=== PATIENT | female | born 2000 | race Caucasian/White ===

== ENCOUNTER 2018-04-23 16:24 | Outpatient (REF) | payer MEDICAID, SELFPAY ==
[2018-04-27 14:37] LABS: Chlamydia Result Negative; GC Result Negative; Specimen Description URINE
== END 2018-04-23 16:44 ==
LOC: LBN 16:24
PROVIDERS: PCP Family Medicine; Visit Provider Nurse Practitioner Women's Health
DX: Z11.3 Encounter for screening for infections with a predominantly sexual mode of transmission (principal)
CPT/HCPCS: 87491; 87591

== ENCOUNTER 2018-11-06 15:39 | Emergency (ER) | payer MEDICAID, SELFPAY ==
[2018-11-06 15:54] VITALS: BP 113/63; PULSE 67; RESP 15; TEMP 36.9; O2SAT 99
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
== END 2018-11-06 17:56 | disposition home or self-care (01) ==
PROVIDERS: Emergency Provider Student in an Organized Health Care Education/Training Program; PCP Family Medicine
DX: S51.811A Laceration without foreign body of right forearm, initial encounter (principal); V17.0XXA Pedal cycle driver injured in collision with fixed or stationary object in nontraffic accident, initial encounter
CPT/HCPCS: 12001; 90471; 99283

== ENCOUNTER 2019-01-01 10:20 | Outpatient (CLI) | payer MEDICAID, SELFPAY ==
[2019-01-01 12:38] LABS: Abs Immature Grans 0.01 k/cumm (0.0-0.09); Absolute Basophil Count 0.03 k/cumm (0.0-0.2); Absolute Eosinophil Count 0.12 k/cumm (0.0-0.7); Absolute Lymphocyte Count 1.48 k/cumm (1.2-3.4); Absolute Monocyte Count 0.41 k/cumm (0.11-0.7); Absolute Neutrophil Count 3.51 k/cumm (1.2-6.7); Basophils % 0.5; Eosinophils % 2.2; HCT 39.4 % (36.0-46.0); HGB 12.8 g/dL (12.0-15.5); Immature Grans % 0.2; Lymphocytes % 26.6; Mean Corp. HGB Concentration 32.5 g/dL (32.0-36.0); Mean Corpuscular Hemoglobin 28.1 pg (27.0-33.0); Mean Corpuscular Volume 86.6 fL (80-95); Mean Platelet Volume 10.7 fL (8.0-11.0); Monocytes % 7.4; Neutrophils % 63.1; Platelet Count 307 x1000/uL (130-400); RBC 4.55 m/cumm (4.00-5.20); RBC Distribution Width 13.2 % (11.7-14.6); White Blood Cell Count 5.56 k/cumm (4.4-10.8)
[2019-01-01 13:04] LABS: ALT 22 U/L (14-59); AST 17 U/L (15-37); Albumin 2.7 g/dL (3.4-5.0); Alkaline Phosphatase 67 U/L (46-116); Anion Gap 9.9 mmol/L (3-11); BUN 9 mg/dL (7-18); Bilirubin, Total 0.2 mg/dL (0.2-1.0); CO2 28.1 mmol/L (21.0-32.0); CREATININE 0.75 mg/dL (0.55-1.02); Calcium 9.7 mg/dL (8.5-10.1); Chloride 103 mmol/L (98-107); Glucose 84 mg/dL (74-106); Potassium 4.6 mmol/L (3.5-5.1); Sodium 141 mmol/L (136-145); TSH (W/Ref FT4) 1.93 uIU/mL (0.36-3.74)
== END 2019-01-01 10:40 ==
PROVIDERS: PCP Family Medicine; Visit Provider Internal Medicine
DX: R45.1 Restlessness and agitation (principal); Z00.00 Encounter for general adult medical examination without abnormal findings
CPT/HCPCS: 36415; 80053; 84443; 85025

== ENCOUNTER 2020-02-28 07:54 | Emergency (ER) | payer MEDICAID, SELFPAY ==
[2020-02-28 07:59] VITALS: BP 132/74; PULSE 60; RESP 18; TEMP 36.5; O2SAT 100
--- NOTE | 2020-02-28 08:12 | W.ED.GENAD ---
Discharge Plan Disposition Patient Disposition: HOME Condition: Stable Discharge Details Clinical Impression: Impetigo Primary Care Provider: Marilee Barnett ED Provider: Yesy Malin Home Meds and New Rx's Prescriptions: New mupirocin 2 % ointment kit 1 applic topical TID 10 Days Qty: 1 RF: 1 cephalexin 500 mg tablet 500 mg PO BID 7 Days Qty: 14 RF: 0 No Action albuterol sulfate 90 mcg/actuation HFA aerosol inhaler 2 puff IH Q6H PRN (Reason: shortness of breath or wheezing) Qty: 8.5 RF: 4 Discharge Instructions Instructions: Impetigo (ED) Additional Instructions: Follow up with primary care provider in 3-5 days. Return to ED sooner if any worsening or concerns. Increase oral fluids. Please take Tylenol or Ibuprofen with food every 4-6 hours as needed for pain and swelling. Please use the topical antibiotic cream as directed 3 times a day for 7 to 10 days. If no improvement with the topical cream in 3 days please start the oral antibiotic and take as directed. Referrals: Marilee Barnett, JADA [Primary Care Provider] - Discharge Data Discharge Date/Time-TO BE ENTERED AT DEPARTURE: 02/28/20 08:37 Medical Decision Making 19-year-old female presents to the ED with chief complaint of periorbital cellulitis and honey crusted lesion surrounding her mouth which has been apparent for approximately 5 days. She denies any trouble swallowing no throat pain no other rashes or lesions on any part of her body. She reports using a sun tanning hopkins prior to onset of symptoms. Denies any fever, chills or any systemic type symptoms. She has been trying cold sore cream with little to no relief. Patient received mupirocin ointment here in department prior to discharge, given a prescription for this. Also given a prescription for oral antibiotics and instructed to start those after 3 days of topical if no improvement. Patient verbalized understanding discussed home care and strict return instructions. This text was generated using Equigerminalation system, please disregard any oddities of phrase or misspellings. HPI General Mode of arrival: ambulatory. Date/Time Provider Initiated Documentation: 02/28/20 08:04. Limitations to Documentation: no limitations. Information obtained by: patient. HPI Narrative: 19-year-old female presents to the ED with chief complaint of periorbital cellulitis and honey crusted lesion surrounding her mouth which has been apparent for approximately 5 days. She denies any trouble swallowing no throat pain no other rashes or lesions on any part of her body. She reports using a sun tanning hopkins prior to onset of symptoms. Denies any fever, chills or any systemic type symptoms. She has been trying cold sore cream with little to no relief. Related Data Home Medications Medication Instructions Recorded Confirmed albuterol sulfate 90 mcg/actuation 2 puff IH Q6H PRN #8.5 gm 01/01/19 02/28/20 aerosol inhaler cephalexin 500 mg PO BID 7 Days #14 tab 02/28/20 mupirocin 1 applic TOPICAL TID 10 Days #1 ea 02/28/20 Previous Rx's Medication Instructions Recorded albuterol sulfate 90 mcg/actuation 2 puff IH Q6H PRN #8.5 gm 01/01/19 aerosol inhaler cephalexin 500 mg PO BID 7 Days #14 tab 02/28/20 mupirocin 1 applic TOPICAL TID 10 Days #1 ea 02/28/20 Allergies Allergy/AdvReac Type Severity Reaction Status Date / Time enviornmental,animal dander Allergy Intermediate Wheezing Uncoded 02/28/20 08:04 General Stated Complaint: Cellulitis FREDI: 4 Review of Systems All systems reviewed & are unremarkable except as noted in HPI and below ENT Ears, Nose, Mouth, and Throat: Reports lip swelling and Reports mouth lesions Allergic/Immunologic Allergic/Immunologic: Reports lip swelling [facility] Medical History History of varicella 11/2009 Mild intermittent asthma Surgical History Tooth extraction age 7 years Family History Paternal Grandfather Stomach cancer Paternal Grandmother Neoplasm LUNG Lung cancer Mother Systemic lupus erythematosus Sickle cell trait Father Essential hypertension Heart disease Hyperlipidemia Alcohol abuse Now sober Maternal History Diabetes FAMILY HISTORY Alcohol abuse Social History Smoking/Tobacco Use Status: Former Tobacco Use Tobacco: How many years used: 3 Quit status: considering quitting Second Hand Exposure: No Smoking risk assessment performed?: Yes Alcohol Intake: current Alcohol Intake frequency: a few times a month Alcohol type: beer, wine and hard liquor Drug use: Occasionally Substance use type: marijuana Caregiver/Support person: No Household members: significant other Housing: apartment Communication Needs: None Do you need help understanding health information?: Never Pets and animals: Yes Pets and animals: dog(s) Sexually active: Yes Do you think of yourself as: straight/heterosexual Current gender identity: female What is your relationship status?: living with partner How often do you talk on the phone with friends or family?: three or more times per week How often do you get together with friends or relatives?: twice per week How often do you attend mormonism or alevism services?: decline to answer Do you belong to any clubs or organized social groups?: yes Panel score (0-1 are the most socially isolated patients): 3 What type of physical activity do you participate in: walking, bicycling, weight lifting and other Details: cardio, skiing, hiking Duration: 60-90 minutes/day Frequency: 5-6 times per week Rae/Mosque: Athiest Special rae needs: No Seatbelt use: always Helmet use: Yes Helmet use: always Drive intox or ride w/intox class c truck driver: No Do you feel safe at home: Yes Do you feel safe in your relationship?: Yes Exam Narrative Exam Narrative: Constitutional: Alert and oriented x3. Appears stated age. Normal body habitus. Head: Normocephalic, no trauma. Eyes: Pupils PERRLA, Red reflex noted, EOM's intact. Eyelids symmetrical without lesions, discharge, or swelling. ENT: Bilateral TM's WNL, External ear normal to inspection, no mastoid TTP, swelling, or erythema, Nasal turbinates WNL, no nasal discharge. Normal dentition, Posterior pharynx WNL, no exudate. Has significant honey custard vesicular lesions periorbital area. Chest: RRR, Normal S1, S2, distal pulses intact. Resp: Lungs clear to auscultation bilaterally, no wheezes, rales, or rhonchi. Neurologic: Cranial nerves II-XII intact. Alert and oriented x 3. DTR's intact. Hematologic/Lymphatic: No ecchymosis, no lymphadenopathy. Course Vital Signs Vital signs: Vital Signs Temperature 36.5 C 02/28/20 07:59 Pulse 60 02/28/20 07:59 Respiratory Rate 18 02/28/20 07:59 Blood Pressure 132/74 02/28/20 07:59 Pulse Oximetry 100 02/28/20 07:59 Temperature 36.5 C 02/28/20 07:59 Temperature Source Temporal Artery Scan 02/28/20 07:59 Pulse 60 02/28/20 07:59 Respiratory Rate 18 02/28/20 07:59 Respiratory Effort Non-Labored 02/28/20 08:03 Blood Pressure 132/74 02/28/20 07:59 Blood Pressure Position Sitting 02/28/20 07:59 Pulse Oximetry 100 02/28/20 07:59 Oxygen Delivery Method Room Air 02/28/20 07:59 Oxygen Flow Rate 0 02/28/20 07:59 Pain Level 6 02/28/20 07:59
== END 2020-02-28 08:37 | disposition home or self-care (01) ==
PROVIDERS: Emergency Provider Registered Nurse Emergency; PCP Nurse Practitioner Family
DX: L03.213 Periorbital cellulitis (principal); L01.00 Impetigo, unspecified
CPT/HCPCS: 99283

== ENCOUNTER 2020-12-16 10:08 | Outpatient (CLI) | payer MEDICAID, SELFPAY ==
--- NOTE | 2020-12-16 | DI.RAD_ITS ---
Exam(s) XR CHEST 2V PA LATERAL EXAM: XR CHEST 2V PA LATERAL CLINICAL HISTORY: Lingering cough, concerns for pneumonia. TECHNIQUE: 2D digital imaging was performed. COMPARISON: No exams were available for comparison FINDINGS: The heart is not enlarged. The lungs are clear and well expanded. No pleural effusion seen. Mediastin al contours appear intact. IMPRESSION: Normal chest. RADIATION DOSE DELIVERED: Total DLP
--- NOTE | 2020-12-16 10:44 | DI.VRAD_ITS ---
PROCEDURE INFORMATION: Exam: XR Chest Exam date and time: 12/16/2020 10:13 AM Age: 20 years old Clinical indication: Patient HX: Lingering cough, concern for pneumonia TECHNIQUE: Imaging protocol: XR of the chest. Views: 2 views. COMPARISON: No relevant prior studies available. FINDINGS: Lungs: Unremarkable. No consolidation. Pleural spaces: Unremarkable. No pleural effusion. No pneumothorax. Heart/Mediastinum: Unremarkable. No cardiomegaly. Bones/joints: Unremarkable. IMPRESSION: No acute findings. Dictated and Authenticated by: Uziel Simms MD. Ordering:DAQUAN Hoff MD
== END 2020-12-16 10:28 ==
PROVIDERS: PCP Nurse Practitioner Family; Visit Provider Physician Assistant Medical
DX: R05.8 Other specified cough (principal)
CPT/HCPCS: 71046

== ENCOUNTER 2021-07-27 11:50 | Outpatient (REF) | payer MEDICAID, SELFPAY ==
--- NOTE | 2021-07-27 11:26 | PAPFT_PTH ---
PATIENT: Tiki Cortez I LOC: [facility] U#:[id number] AGE/SX: 21/F ROOM: RE07/27/[address]: Deepail Meehan, PhD PEDIATRIC IMMUNOLOGIST : 2000 BED: DIS: 07/27/2021 SPEC #: [id number] RECD: 07/27/21 12:51 STATUS: LIONEL REQ #: [id number] PRINCE: 07/27/21 11:[address]: Deepali Meehan DEPT: [facility] Cytology RECD BY: Molly Munoz ENTERED: 07/27/21 12:51 SP TYPE: PAPFT OTHR DR: Marilee Barnett, BIOLOGY ADJUNCT INSTRUCTOR Tissues: 1 - CX/ENDOCX FOR PAP SMEARS Procedures: PAP THIN PREP/[facility] Screening Comments: [id number] (CHLAMYDIA/GC)
[2021-07-31 07:29] LABS: Chlamydia Result Negative (Negative); GC Result Negative (Negative)
== END 2021-07-27 11:51 | disposition home or self-care (01) ==
LOC: LBN 11:50
PROVIDERS: PCP Nurse Practitioner Family; Visit Provider Nurse Practitioner
DX: Z11.3 Encounter for screening for infections with a predominantly sexual mode of transmission (principal); Z12.4 Encounter for screening for malignant neoplasm of cervix
CPT/HCPCS: 87491; 87591; 88142

== ENCOUNTER 2021-12-27 09:26 | Emergency (ER) | payer MEDICAID, SELFPAY ==
[2021-12-27 09:28] VITALS: BP 120/72; PULSE 81; RESP 17; TEMP 36.9; O2SAT 100
--- OUTSIDE RECORDS SUMMARY | 2021-12-27 09:31 | XMS_ITS | Clinical Summary ---
:2000 Demographics Home Phone Preferred Language Unknown Marital Status Unknown Catholic Affiliation Unknown Race Unknown Ethnic Group Unknown Author Organization [facility] Address [address] [place] [id number] Care Team Providers Name Role Phone Unavailable Primary Care Provider Unavailable Social History Tobacco Use Types Packs/Day Years Used Date Smoking Tobacco: Never Assessed Sex Assigned at Date Recorded Not on file Plan of Treatment Health Maintenance Due Date Last Done Comments Hepatitis C Screen 2000 COVID-19 Vaccine (#1) 01/10/1999
--- OUTSIDE RECORDS SUMMARY | 2021-12-27 09:31 | XMS_ITS | Encounter Summary ---
:2000 Demographics Home Phone Preferred Language Unknown Marital Status Unknown Jainism Affiliation Unknown Race Unknown Ethnic Group Unknown Author Organization [facility] Address [address] [place] [address] Care Team Providers Name Role Phone Unavailable Primary Care Provider Unavailable Encounter Details Date Type Department Care Team Description 07/27/2021 Lab Requisition [facility] Center Outr Resulting Lab, Pathology & Laboratory Provider [facility] [address] [place] [address] Social History Tobacco Use Types Packs/Day Years Used Date Smoking Tobacco: Never Assessed Sex Assigned at Date Recorded Not on file documented as of this encounter Plan of Treatment Not on filedocumented as of this encounter Procedures Procedure Name Priority Date/Time Associated Comments Diagnosis CHLAMYDIA/N. Routine 07/27/2021 11:26 Results for this GONORRHOEAE AMPLIFIED EDT proced ure are in RNA, THINPREP the results section. documented in this encounter Results CHLAMYDIA/N. GONORRHOEAE AMPLIFIED RNA, THINPREP (07/27/2021 11:26 EDT) [facility] Method Time Signature Gonococcus Negative Negative 07/31/2021 [facility] Result 7:24 EDT [facility] Chlamydia Negative Negative 07/31/2021 [facility] Result 7:24 [facility]T [facility] Specimen Anatomical Collection Method Collection Time Receive d Time (Source) Location / / Volume Laterality Pap Test ([facility] 07/27/2021 11:26 022 9:48 and/or EDT EDT [facility]) Provider Outr Resulting Lab MICROBIOLOGY - GENERAL ORD ERABLES Performing Organization Address City/State/ZIP Code Phon e Number [facility] [address] [place] [address] SERVICES documented in this encounter Visit Diagnoses Not on filedocumented in this encounter
--- NOTE | 2021-12-27 11:13 | DI.RAD_ITS ---
Exam(s) XR KNEE RT 3V AP,LAT,GUILLERMO EXAM: XR KNEE RT 3V AP,LAT,GUILLERMO CLINICAL HISTORY: right knee pain and swelling, ski fall TECHNIQUE: COMPARISON: No exams were available for comparison FINDINGS: Three views were obtained. Cartilaginous joint spaces are well maintained. There is a probable knee joint effusion. There is no evidence of acute fracture or dislocation. IMPRESSION: RADIATION DOSE DELIVERED: Total DLP
--- NOTE | 2021-12-27 11:39 | ED.GENADUL_ITS ---
Discharge Plan Disposition Patient Disposition: Home Condition: Stable Discharge Details Clinical Impression: Effusion of knee Primary Care Provider: Marilee Barnett ED Provider: Molly Madrigal Home Meds and New Rx's Prescriptions: Continued albuterol sulfate 90 mcg/actuation HFA aerosol inhaler 2 puff IH Q6H PRN (Reason: shortness of breath or wheezing) Qty: 8.5 4RF dextroamphetamine-amphetamine [Adderall XR] 20 mg capsule,extended release 24hr 20 mg PO DAILY MDD 20mg Qty: 28 0RF Discharge Instructions Additional Instructions: Take ibuprofen and Tylenol as needed for pain Follow-up with orthopedics, you will be placed in a knee immobilizer and given crutches Return earlier should he have any worsening complaints Referrals: Molly Madrigal PA [Emergency Provider] - 1 day Discharge Data Discharge Date/Time-TO BE ENTERED AT DEPARTURE: 12/27/21 11:53 Medical Decision Making Patient does not have obvious laxity to right knee, effusion noted, tenderness over medial aspect of knee, effusion on x-ray per radiology interpretation my review, no evidence of obvious fracture, neurovascularly intact Medical Records Medical records reviewed: Yes I reviewed the patient's medical records. Lab Data Lab results reviewed: Yes I reviewed the patient's lab results. Sign Out No HPI General Date/Time Provider Initiated Documentation: 12/27/21 09:35 . HPI Narrative: This 20-year-old female states she was skiing last evening and did a 360 in the air, landing on her right knee and had a reported valgus injury. She has pain to her knee. She denies any additional injuries and was wearing a helmet. She does mention . Denies any sensation change. She states she has pain and is unable to apply pressure to the affected area secondary to discomfort but not to laxity. Event occurred last evening. Related Data Home Medications Medication Instructions Recorded Confirmed albuterol sulfate 90 mcg/actuation 2 puff inhalation Q6H PRN 01/01/19 12/27/21 aerosol inhaler shortness of breath or wheezing #8.5 grams dextroamphetamine-amphetamine ER 20 mg PO DAILY #28 caps 12/17/21 12/27/21 20 mg 24hr capsule,extend release (Adderall XR) Previous Rx's Medication Instructions Recorded albuterol sulfate 90 mcg/actuation 2 puff inhalation Q6H PRN 01/01/19 aerosol inhaler shortness of breath or wheezing #8.5 grams dextroamphetamine-amphetamine ER 20 mg PO DAILY #28 caps 12/17/21 20 mg 24hr capsule,extend release (Adderall XR) Allergies Allergy/AdvReac Type Severity Reaction Status Date / Time enviornmental,animal dander Allergy Intermediate Wheezing Uncoded 12/27/21 12:10 General Stated Complaint: Orthopedic FREDI: 4 Review of Systems All systems reviewed & are unremarkable except as noted in HPI and below PFSH All Active Problems (Updated 12/27/21 @ 12:41 by Clem Arguello MD) Internal derangement of right knee (Acute) Hemarthrosis of knee, right (Acute) Attention deficit hyperactivity disorder (ADHD) (Chronic) Allergic rhinitis, unspecified (Chronic) Exercise-induced asthma (Chronic) Family History Paternal Grandfather Stomach cancer Paternal Grandmother Neoplasm LUNG Lung cancer Mother Systemic lupus erythematosus Sickle cell trait Diabetes Father Essential hypertension Heart disease Hyperlipidemia Alcohol abuse Now sober Maternal History Diabetes FAMILY HISTORY Alcohol abuse Brother Substance use disorder Depression Alcohol use disorder Social History Smoking/Tobacco Use Status: Former Tobacco Use tobacco type: cigarettes and e- cigarettes Quit Date: 02/20/20 Tobacco: How many years used: 3 Quit status: has quit before Second Hand Exposure: No Smoking risk assessment performed?: Yes Alcohol Intake: former Drug use: Daily Substance use type: marijuana Caregiver/Support person: No Household members: significant other Housing: apartment Communication Needs: None Do you need help understanding health information?: Never Pets and animals: Yes Pets and animals: dog(s) Sexually active: Yes Do you think of yourself as: bisexual Current gender identity: female What is your relationship status?: living with partner How often do you talk on the phone with friends or family?: three or more times per week How often do you get together with friends or relatives?: twice per week Do you belong to any clubs or organized social groups?: yes Panel score (0-1 are the most socially isolated patients): 3 What type of physical activity do you participate in: walking, bicycling, weight lifting and other Details: cardio, skiing, hiking Duration: > 90 minutes/day Frequency: daily Rae/Mandaeism: Spiritual Special rae needs: No Seatbelt use: always Helmet use: Yes Helmet use: always Drive intox or ride w/intox patient transportation driver: No Do you feel safe at home: Yes Do you feel safe in your relationship?: Yes Exam Const General: cooperative, comfortable and no acute distress Extrem Other: Right knee with tenderness, effusion noted, no tenderness to right hip or right ankle, neurovascularly intact Course Vital Signs Vital signs: Vital Signs Temperature 36.9 C 12/27/21 09:28 Pulse 81 12/27/21 09:28 Respiratory Rate 17 12/27/21 09:28 Blood Pressure 120/72 12/27/21 09:28 Pulse Oximetry 100 12/27/21 09:28 Temperature 36.9 C 12/27/21 09:28 Temperature Source Temporal Artery Scan 12/27/21 09:28 Pulse 81 12/27/21 09:28 Respiratory Rate 17 12/27/21 09:28 Respiratory Effort Non-Labored 12/27/21 09:32 Blood Pressure 120/72 12/27/21 09:28 Blood Pressure Position Sitting 12/27/21 09:28 Pulse Oximetry 100 12/27/21 09:28 Oxygen Delivery Method Room Air 12/27/21 09:28 Oxygen Flow Rate 0 12/27/21 09:28 Pain Level 4 12/27/21 09:32
== END 2021-12-27 11:53 | disposition home or self-care (01) ==
PROVIDERS: Emergency Provider Physician Assistant; PCP Nurse Practitioner Family
DX: M25.461 Effusion, right knee (principal); X50.1XXA Overexertion from prolonged static or awkward postures, initial encounter; Y93.23 Activity, snow (alpine) (downhill) skiing, snowboarding, sledding, tobogganing and snow tubing
CPT/HCPCS: 73562; 99283; 99282

== ENCOUNTER → 2021-12-27 13:04 | Outpatient (CLI) | payer MEDICAID, SELFPAY ==
--- NOTE | 2021-12-27 13:15 | DI.MRI_ITS ---
Exam(s) MR LOWER JOINT RT WO EXAM: MR LOWER JOINT RT WO CLINICAL HISTORY: INJURY,PAIN RT ACL TEAR S83.511A SPRAIN RT KNEE TECHNIQUE: Multiplanar multisequence MRI was performed.. COMPARISON: No exams were available for comparison FINDINGS: MR examination of the knee was performed according to the usual protocol. There is a moderate knee joint effusion and there is diffuse edema/free fluid in the soft tissues darrel rounding the knee joint. There are areas of abnormal marrow signal in the posterior aspect of the proximal tibia both medially laterally, as well as lateral femoral condyle period. Medial tibiofemoral joint: The articular cartilage of the femur and tibia appears well maintained. T he meniscus and attachments appear intact. The medial collateral ligament appears intact. No hyperion essbase developer omedial corner injury seen. Lateral tibiofemoral joint: The articular cartilage of the femur and tibia appears well maintained. There is a tear of the body and posterior horn of the lateral meniscus. The there is some abnormal s ignal in the lateral collateral ligament complex without a displaced tear. Posterolateral corner str uctures appear intact. Patellofemoral joint and extensor mechanism: The articular cartilage of the patellofemoral joint appe ars intact. The superior and inferior patellar fat pads appear normal with no signal abnormality. The quadriceps tendon and patellar tendon appear intact with no evidence of a tear or significant brenna ma. The medial and lateral retinacula appear intact. Cruciate ligaments: There is a complete tear of the midportion of the anterior cruciate ligament. Po sterior cruciate ligament appears intact. Tibiofibular joint: No specific abnormality involving the tibiofibular joint. IMPRESSION: Bony trabecular injuries of lateral femoral condyle and proximal posterior tibia both medially and la terally. Full-thickness ACL midbody tear . Lateral meniscal tear involving body and posterior horn of the lateral meniscus DATA REPOSITORY:
== END ==
PROVIDERS: PCP Nurse Practitioner Family; Visit Provider Student in an Organized Health Care Education/Training Program
DX: S83.511A Sprain of anterior cruciate ligament of right knee, initial encounter (principal); S83.281A Other tear of lateral meniscus, current injury, right knee, initial encounter; X58.XXXA Exposure to other specified factors, initial encounter
CPT/HCPCS: 73721

== ENCOUNTER 2022-01-25 07:15 | Day surgery (SDC) | payer MEDICAID, SELFPAY ==
[2022-01-25] VITALS (10 sets, daily range): BP systolic 115–158; BP diastolic 65–107; PULSE 60–85; RESP 11–20; TEMP 36.5–37.1; O2SAT 99–100; BMI 22.8
[2022-01-25] MEDS: Lactated Ringers 1,000 ML 30 ML IV (08:28)
--- NOTE | 2022-01-25 09:06 | W.ANESPRE ---
General Info Date of Service Date Performed: 01/25/22 Height: 5 ft 2 in Weight: 56.6 kg Body Mass Index (BMI): 22.8 Surgical Procedure: Operation Date: 01/25/22 09:40 Proposed Procedure Side Surgeon p Knee ACL Reconstruction (Quadriceps Autograft) any indicated meniscal, chondral or synovial surgery Evan Philippe MD Meds Allergies and Home Medications Allergies Allergy/AdvReac Type Severity Reaction Status Date / Time animal dander Allergy Wheezing Verified 01/25/22 07:57 Home Medication Medication Instructions Recorded albuterol sulfate 90 mcg/actuation 2 puff inhalation Q6H PRN 01/01/19 aerosol inhaler shortness of breath or wheezing #8.5 grams dextroamphetamine-amphetamine ER 20 mg PO DAILY #56 caps 01/22/22 10 mg 24hr capsule,extend release (Adderall XR) Current Visit Medications: Current Medications Generic Name Dose Route Start Last Admin Trade Name Freq PRN Reason Stop Dose Admin Ringer's Solution 1,000 mls @ 30 mls/hr 01/25/22 06:00 01/25/22 08:28 IV 02/23/22 23:59 30 mls/hr INFUSION CHAGO Administration Cefazolin Sodium/Dextrose 2 gm in 50 mls @ 100 mls/hr 01/25/22 06:00 Ancef Duplex IVPB 02/23/22 23:59 PREOP CHAGO IV Miscellaneous Supplies 1 each 01/25/22 06:00 Iv Access IV 02/23/22 23:59 DIRECTED CHAGO Oxycodone HCl 0 mg 01/25/22 07:16 Oxycodone 5 Mg Tab PO Q3H PRN PRN Pain Sodium Chloride 0 ml 01/25/22 06:00 Normal Saline Flush 10 Ml Syr IV 02/23/22 23:59 PRN PRN Sodium Chloride 0 ml 01/25/22 06:00 Normal Saline 10 Ml Vial IJ 02/23/22 23:59 DIRECTED PRN Sterile Water 0 ml 01/25/22 06:00 Water,Injection,Sterile 10 Ml Vial IJ 02/23/22 23:59 DIRECTED PRN PFSH Active Problems Active Problems: Problem Status Onset Code Exercise-induced asthma J45.990 Allergic rhinitis, unspecified J30.9 Attention deficit hyperactivity disorder (ADHD) F90.9 Right ACL tear S83.511A Bucket handle tear of lateral meniscus of right knee S83.251A Medical History Medical History Hemarthrosis of knee, right Hx of gingivitis Internal derangement of right knee Medical History Comments:: Daily Marijauna Tobacco Smoking/Tobacco Use Status: Former Tobacco Use Passive smoking exposure: Yes Second hand exposure: No Alcohol Alcohol Intake: former Substance Use Substance use: Daily Substance use type: marijuana Vital Signs and Lab Results Vital Signs Most Recent Vital Signs in EMR: Most Recent Vital Signs Temp Pulse Resp BP Pulse Ox 37.1 C 68 16 116/65 99 01/25/22 07:59 01/25/22 07:59 01/25/22 07:59 01/25/22 07:59 01/25/22 07:59 Point of Care Results Point of Care Results: POC- Test(urine) Negative 01/25/22 08:43 Lab Results Blood Type / Crossmatch: No Data to Display Complete Blood Count: No Data to Display Complete Metabolic Panel: No Data to Display Liver Function Panel: No Data to Display Coagulation Panel: No Data to Display Cardiac Panel: No Data to Display Arterial Blood Gas: No Data to Display Venous Blood Gas: No Data to Display Pancreas Panel: No Data to Display Thyroid Panel: No Data to Display Infectious Disease: No Data to Display Blood Cultures: No Data to Display Toxicology Panel: No Data to Display Panel: No Data to Display Anesthesia Assessment and Plan Anesthesia History Personal History: No History of General Anesthesia Family History: No Family History of Anesthesia Complications Exercise Tolerance Exercise Tolerance: Metabolic Equivalents>4 Pertinent Negatives Pertinent Negatives: No Symptoms of GERD and No Major Cardiovascular Symptoms or Complaints Cardiac & Pulmonary Exam Cardiac Exam: Normal S1/S2 Heart Sounds Pulmonary Exam: Clear Bilateral Breath Sounds Implantable Cardiac Device Does patient have a Pacemaker or an ICD?: No Airway Exam Known Difficult Airway: No Mallampati Class: 1 Mouth Opening: Normal (> 3cm) Thyromental Distance: Greater than 3 cm Neck Range of Motion: Full ROM Neck Circumference: Normal Teeth Condition: Normal Dentition ASA Classification ASA Score: ASA 2 Emergency Case?: No NPO Status NPO Status: NPO Clears >2 hours, Solids >8 hours Status Status: Negative HCG Anesthesia Plan Resuscitation Status: Full Code Anesthesia Technique: General Anesthesia Airway Planned: Endotracheal Tube Pain Management: Surgeon and patient request nerve block Monitors Used: Standard Monitors
[2022-01-25] MEDS: ceFAZolin 2 GM/50 ML BAG IVPB (10:31)
[2022-01-25] MEDS: Bupivacaine 0.25% Pres-Free W/EPI 30 ML VIAL (11:01)
--- NOTE | 2022-01-25 11:01 | W.ANESNERVE ---
Nerve Block Single Injection Procedure Date and Time Date Performed: 01/25/22 Procedure Start: 10:19 Location Where Procedure Performed Procedure Location: Day Surgery Unit Reason Performed: Postoperative Analgesia Requesting Provider: Evan Philippe Timeout Performed Timeout Performed: Yes Monitoring Used ECG, Blood Pressure, SpO2 and See EMR for corresponding vital signs Sterility Sterility: Hand Hygiene, Surgical Cap, Surgical Mask, Sterile Gloves and Chlorhexidine Sedation Given During Procedure Sedation Given (Indicate Dose Given): Versed IV Dose:: 2mg Patient Mental Status Patient Mental Status: Awake Nerve Block 1st Nerve Block: Laterality: Right Block Type: Adductor Canal Needle / Catheter Used: 100mm SonoPlex II Local Anesthetic Bolus (Indicate Dose Given): Lidocaine used for local infiltration of skin, Injected in 3-5ml increments after negative blood aspiration and Bupivacaine 0.25% Dose:: 20ml Additives (Indicate Dose Given): None Ultrasound: Sterile probe cover and gel used Ultrasound Image Saved?: Yes Nerve Stimulator: Not Used Paresthesia: None Procedure Tolerated: No Complications and Patient tolerated well Procedure Outcome: Successful Performed By: Fadi Boothe
[2022-01-25] MEDS: EPINEPHrine 30 MG/30 ML VIAL (14:36)
--- NOTE | 2022-01-25 15:11 | W.PM.DSUDISC ---
Date of service: 01/25/22 Time of Service: 15:00 Discharge Plan Disposition Patient Disposition: Home Condition: Stable Discharge Details Attending Provider: Evan Philippe Primary Care Provider: Marilee Barnett Home Meds and New Rx's Prescriptions: New aspirin 81 mg tablet,delayed release (DR/EC) 81 mg PO DAILY 14 Days Qty: 14 0RF oxycodone 5 mg tablet 5 - 10 mg PO Q4H MDD 30 mg PRN (Reason: moderate to severe pain) Qty: 18 0RF naproxen 250 mg tablet 250 - 500 mg PO BID PRNQty: 40 0RF Rx Instructions: take with a meal Continued albuterol sulfate 90 mcg/actuation HFA aerosol inhaler 2 puff IH Q6H PRN (Reason: shortness of breath or wheezing) Qty: 8.5 4RF dextroamphetamine-amphetamine [Adderall XR] 10 mg capsule,extended release 24hr 20 mg PO DAILY MDD 2 tabs Qty: 56 0RF Discharge Instructions Additional Instructions: Surgery: Right knee arthroscopy with quadriceps autograft ACL reconstruction and lateral meniscus repair Activity: Weightbearing in extension-only for 6 weeks. Use crutches and brace as needed to protect and maintain knee straight. Recommend ice and elevation to minimize swelling and discomfort. Encourage quad sets, ankle pumps, and wiggle toes to stimulate muscles and improve circulation. Seated/ non-weight bearing flexion 0-90 degrees maximum for 6 weeks. 120 degrees maximum flexion for 8 weeks. Spin/bike after 8 weeks. No weighted deeper flexion (squats, lunges) for 10 weeks. A physical therapy prescription will be sent electronically to start in about 2 weeks. Prescriptions: Aspirin 81 mg take 1 daily to prevent a blood clot for 14 days Naproxen 250 mg take 1-2 every 12 hours with a meal as needed for moderate pain Oxycodone 5 mg take 1-2 every 4-6 hours as needed for severe pain You may use [id number] Tylenol (acetaminophen) as needed for mild pain. These pain medications may be taken all at once or in different combinations as needed. Also, recommend Colace (docusate) as a stool softener as surgery and pain medicine cause constipation. You may try [id number]-ehm-[id number] diphenhydramine (Benadryl) 25-50 mg nightly as a sleep aid Dressings: Leave dressing in place for 3 days. May then remove and leave open to air or cover incisions with Band-Aids. May shower after 5 days. Follow-up: 10-[address] Philippe You may take off the leg compression stockings this evening at home. You may also leave them on a few days longer if you have a history of leg swelling or edema. Let us know right away if you develop any redness, drainage, fevers, chest pain, or trouble breathing. Do not drink alcohol or drive for at least 24 hours after anesthesia. Please call the office during business hours with any questions or concerns. Discharge Orders Discharge Orders: Discharge Order (Routine); Ordered 01/25/22 Ordered By: Evan Philippe DS: Diagnosis Discharge Diagnosis (1) Bucket handle tear of lateral meniscus of right knee: Status: Acute (2) Right ACL tear: Status: Acute
--- NOTE | 2022-01-25 15:29 | W.PM.OP ---
Date of service: 01/25/22 Time of Service: 12:00 Operative Note Operative Note DATE OF PROCEDURE: 01/25/22 PRE-OP DIAGNOSIS: Right knee: 1. ACL rupture 2. Bucket handle lateral meniscus tear PROCEDURE: Right knee: 1. ACL reconstruction, CPT #17817: Quadriceps autograft 2. Lateral meniscus repair, CPT #59606 SURGEON: Evan Philippe C WINFORMS DEVELOPER: Sandrita Vargas ANESTHESIA TYPE: Local By Surgeon, General LMA/ETT and Primary Nerve Block Refer to Anesthesia Record ESTIMATED BLOOD LOSS: 10 TOURNIQUET TIME: 0 COMPLICATIONS: None Patient was transported to: PACU Patient's condition: stable Implants: Arthrex ACL TightRope II RT and ABS with 8x12 mm cortical button Indications: Please see complete medical record for details. Findings: Exam under anesthesia: Full extension and deep flexion without any mechanical block. Grossly positive Reji without endpoint. Stable varus, valgus, and posterior drawer. Arthroscopic findings: Complete ACL mid substance to proximal disruption. Intact PCL. Intact medial compartment and medial meniscus. Bucket-handle displaced posterior horn lateral meniscus tear with somewhat complex peripheral vertical tearing as well as red-white zone horizontal tear extension into the inferior leaflet. Intact body and anterior horn. Intact articular cartilage throughout. Procedure Description: In the operating room, general anesthesia was induced. The patient was positioned supine on the operating room table. All bony prominences were well-padded. Preoperative antibiotics were administered. The knee was prepped and draped in the usual sterile fashion. The correct patient, procedure, and side of the procedure were all verified prior to incision. Exam under anesthesia was performed. 20 cc of a 50:50 mixture of bupivacaine and lidocaine containing epinephrine was infiltrated about the planned anteromedial, anterolateral, lateral distal femoral, and pretibial surgery sites. The standard high and tight anterolateral and anteromedial portals were established and a complete diagnostic arthroscopy was performed with relevant findings detailed above. A passport cannula was inserted in both the anteromedial and anterolateral portals. The lateral meniscus posterior horn was displaced and bucketed into the intercondylar area. The blunt probe was used to provisionally reduce it back under the lateral femoral condyle. The short ACL remnant was removed from the tibia leaving enough footprint to localize anatomic socket placement. The probe was used to confirm multiple tear lines in the posterior horn lateral meniscus. In the [id number] position, the meniscus was reduced as best possible with varus graspers. The knee scorpion was then used to place a circumferential mini 0.9 mm suture tape around both tears and secured with an [facility] arthroscopic knot with the knot tied and maintained peripherally inferiorly. This initial suture kept the meniscus tissue well reduced. An additional circumferential stitch was placed towards the posterior horn body junction and secured similarly. With the addition of this stitch, the posterior horn of the meniscus did not displace into the compartment anymore as secured to the reduced tear together to the remainder of the meniscus. Lastly, a third stitch was placed between the initial ones taking care to ensure a deep peripheral capsular pass circumferentially around all parts of the meniscus again secured with an [facility] arthroscopic knot. On probing there was excellent reduction and maintenance of the meniscus posteriorly against capsule. The remainder of the meniscus toward the body was stable as well as towards the root. There was no need for additional meniscus repairing. Back in the intercondylar area, A small notchplasty was performed to allow proper visualization of the back wall and the femoral footprint was marked anatomically with a curette. Next, a quadriceps graft was harvested. The superior pole the patella and quadriceps tendon was localized and a longitudinal incision made down and exposing the margins of the quadriceps tendon. There was excellent visualization of the VMO, lateralis, and sufficient length and width of tendon for harvest. The distal end was started with a knife with about 10 mm with somewhat conical to the patella. A full-thickness graft was done given the somewhat diminutive overall dimensions. The knife was used to guide tendon harvest proximally and targeting casillas made for proper trajectory. A stitch was placed at the distal end and the quad pro harvester size 10 mm was used carefully to strip about 70 mm of tendon and then the plunger was used to harvest about 65 mm graft. The full-thickness quadriceps harvest site was closed in a watertight fashion using #1 Vicryl [id number] interrupted stitches. The graft was prepared on the back table trimming the ends and bulletizing with fiber tag tight rope and ABS added to each side. The resulting graft was nicely compressed and a 9 mm graft tube on the tibial side and with difficulty on the femoral side. Femoral and was closer to 9.5-10 mm and the tibial side 9 mm.. The prepared graft was about 67 mm in length.. The graft was marked at 20 mm from each end. On the ABS side, the tensioning sutures were marked and a shuttle suture was added. On the tight rope side flipping green Ethibond suture was added. The graft was manually tensioned and the construct did not demonstrate any elongation. The graft was then compressed in a graft tube and covered with vancomycin soaked sponges. Back in the knee, the femoral guide was then placed through the anterolateral portal carefully targeting the appropriate anatomic ACL origin. The outer 9 mm diameter of the guide was carefully positioned off of the proximal and posterior articular margins. On the lateral thigh, drill guide position and angle adjusted to about 60 degree angle to the longitudinal axis of the femur in the coronal plane and 20 degree angle to the trans-epicondylar axis in the axial plane to create the most optimal femoral socket. Knife and snap were used to open the skin and IT band and placed the drill guide on bone while maintaining appropriate position on the lateral wall. The tunnel length was noted to be used for marking and passing the femoral button. The flip cutter was then drilled to the appropriate location. The drill guide malleted 7 mm into the cortex. The remainder of the targeting guide removed. The FlipCutter was deployed to 10 mm and retrograde reaming done to a depth of over 25 mm. Bony debris was removed with the shaver. The flip cutter was then closed, withdrawn, and a FiberStick used to pass a #2 FiberWire shuttle stitch, which was withdrawn out the anterolateral portal. The tibial guide was then used to target the anatomic ACL insertion through the anteromedial portal. The drill angle adjusted to 57.5 degrees and a pretibial incision made. The drill guide was placed on bone, tunnel length noted, and the flip cutter drilled to the appropriate location. The drill guide malleted 7 mm into the cortex. The remainder of the targeting guide removed. The FlipCutter was deployed to 9mm and retrograde reaming done to a depth of 35mm. Bony debris was removed with the shaver. The flip cutter was then closed, withdrawn, and a FiberStick used to pass a #2 FiberWire shuttle stitch, which was withdrawn out the anteromedial portal. The mechanical shaver was used to remove bone debris as well as chamfer and remove soft tissue from the edges of the sockets. A femoral shuttle sutures were withdrawn out the anterior medial portal. The PassPort was removed. This portal dilated to accommodate the graft size. The graft was brought over to the knee and the femoral sutures shuttled out the lateral thigh and advanced until the button was near the far cortex. Under arthroscopic visualization with the knee slightly hyperflexed, and the button was then passed and flipped on the far cortex. Counter traction was then maintained on the tibial side of the graft while it was carefully advanced into the knee and then about 15 mm into the femoral socket. The tibial sutures were then shuttled through the tibial tunnel and passing stitch removed while carefully noting the tensioning stitches. The graft was then dunked about 20 mm into the tibial socket. The 8 x 12 mm oblong ABS button was then loaded to the ABS loop and tension sutures used to bring the cortical button down to bone. The graft was advanced and then provisionally tensioned on both the femoral and tibial sides. The knee was then cycled 22 times, tensioning rechecked, and final tightening done with the knee in full extension with a moderate reverse Reji maintained. The graft position and tension were appropriate. There was no impingement in full extension. The lateral meniscus repair remained stable. Reji exam was quite stable. Femoral passing sutures were removed. Backup knots were then tied on both sides and suture tails cut. The knee and all portals were copiously irrigated and then knee drained of arthroscopic fluid. 3-0 Monocryl was used to close the portals and small incisions in a buried interrupted fashion. Mastisol, Steri-Strips, Xeroform, 4 x 4 gauze, and sterile soft roll was applied. The extremity was wrapped gently with an Farhan bandage. A soft knee immobilizer placed. The patient awoke from anesthesia without complication and was transferred to the recovery room in a stable condition.
--- NOTE | 2022-01-25 15:30 | W.ANESPOSTOP ---
Postoperative Evaluation Date, Time and Location Date Performed: 01/25/22 Time Performed: 15:30 Patient Location: PACU Vital Signs Most Recent Imported Vital Signs: Most Recent Vital Signs Temp Pulse Resp BP Pulse Ox 36.5 C 77 18 149/89 H 100 01/25/22 15:30 01/25/22 15:30 01/25/22 15:30 01/25/22 15:30 01/25/22 15:30 Pain Score Most Recent Pain Score: Most Recent Pain Score Pain Level 0 01/25/22 10:25 Assessment Mental Status: Awake (Alert & Oriented to Patient Baseline) Airway and Respiratory Function: Patent airway with normal (patient baseline) respiratory exam Cardiovascular Function: Hemodynamically Stable Hydration Status: Adequately Hydrated Nausea & Vomiting: No Nausea or Vomiting Pain: Pain is tolerable per patient Peripheral Nerve Block: Regional nerve block not resolved at time of post operative discharge
[2022-01-25] MEDS: fentaNYL 100 MCG/2 ML VIAL IVP (15:41)
[2022-01-25] MEDS: oxyCODONE 5 MG TAB PO (16:14)
== END 2022-01-25 16:46 | disposition home or self-care (01) ==
PROVIDERS: PCP Nurse Practitioner Family; Visit Provider Student in an Organized Health Care Education/Training Program
PROC: (CPT 29888; principal; 2022-01-25 09:30)
DX: S83.251A Bucket-handle tear of lateral meniscus, current injury, right knee, initial encounter (principal); S83.511A Sprain of anterior cruciate ligament of right knee, initial encounter; X58.XXXA Exposure to other specified factors, initial encounter
CPT/HCPCS: 29888; 29882; 76942; 81025; J0690; J1100; J1885; J2250; J2405; J2704; J3010; J3475

== ENCOUNTER 2022-04-17 11:06 | Outpatient (CLI) | payer MEDICAID, SELFPAY ==
--- NOTE | 2022-04-17 10:27 | DI.RAD_ITS ---
Exam(s) XR KNEE RT 2V AP,LAT EXAM: XR KNEE RT 2V AP,LAT CLINICAL HISTORY: f/u surgery. TECHNIQUE: 2D digital imaging was performed. Three views. COMPARISON: CR XR KNEE RT 3V AP,LAT,GUILLERMO from 12/27/2021 MR MR LOWER JOINT RT WO from 12/27/2021 FINDINGS: BONES: No acute fracture is present. No bony destructive lesion is seen. Patient is status post ACL repair. JOINTS: The knee is normally aligned. joint effusion is seen. Joint spaces are maintained. SOFT TISSUE: Anterior soft tissue swelling. IMPRESSION: Status post ACL repair. DATA REPOSITORY: RADIATION DOSE DELIVERED:
== END 2022-04-17 11:07 | disposition home or self-care (01) ==
LOC: DIORS 11:07
PROVIDERS: PCP Nurse Practitioner Family; Referring Provider Nurse Practitioner Family; Visit Provider Student in an Organized Health Care Education/Training Program
DX: Z98.890 Other specified postprocedural states (principal)
CPT/HCPCS: 73560

== ENCOUNTER 2022-04-24 01:44 | Outpatient (CLI) | payer MEDICAID, SELFPAY ==
--- NOTE | 2022-04-24 07:00 | DI.MRI_ITS ---
Exam(s) MR LOWER JOINT RT WO EXAM: MR LOWER JOINT RT WO CLINICAL HISTORY: R KNEE STIFFNESS,RT ACL TEAR,BUCKET HANDLE TEAR LAT MENISCUS,M25.661,S83.51. TECHNIQUE: Multiplanar multisequence MRI was performed. COMPARISON: MR MR LOWER JOINT RT WO from 12/27/2021 FINDINGS: The examination is limited due to patient motion artifact. BONES: There is marrow edema seen in the distal femur and proximal tibia. No fractures identified. JOINTS: Articular cartilage is unremarkable. There is a small joint effusion. TENDONS: Extensor mechanism: Unremarkable. Medial retinaculum: Unremarkable. Lateral retinaculum: Unremarkable. Popliteus: Unremarkable. MUSCLES: Unremarkable. MENISCI: The medial meniscus is unremarkable. The lateral meniscus is unremarkable. SOFT TISSUES: Unremarkable. LIGAMENTS: Anterior Cruciate: The repaired anterior cruciate ligament is intact. Posterior Cruciate: Unremarkable. Medial Collateral:Unremarkable. Lateral Collateral: Unremarkable. OTHER: IMPRESSION: 1. The examination is limited due to patient motion artifact. 2. Intact repaired anterior cruciate ligament. 3. No evidence of a meniscal or ligament tear. 4. Marrow edema seen in the distal femur and proximal tibia without fracture. 5. Small joint effusion. DATA REPOSITORY:
== END 2022-04-24 02:04 ==
LOC: DI 01:44
PROVIDERS: PCP Nurse Practitioner Family; Visit Provider Student in an Organized Health Care Education/Training Program
DX: M25.561 Pain in right knee (principal); M25.661 Stiffness of right knee, not elsewhere classified; M25.461 Effusion, right knee; Z98.890 Other specified postprocedural states
CPT/HCPCS: 73721

== ENCOUNTER 2023-05-14 15:39 | Outpatient (CLI) | payer MEDICAID, SELFPAY ==
--- NOTE | 2023-05-14 08:30 | DI.RAD_ITS ---
Exam(s) XR KNEE LT 3V AP,LAT,GUILLERMO EXAM: XR KNEE LT 3V AP,LAT,GUILLERMO CLINICAL HISTORY: LEFT KNEE PAIN. TECHNIQUE: 2D digital imaging was performed of the left knee. Three images were obtained. Merchant ,AP and lateral views were obtained. COMPARISON: No priors for comparison. FINDINGS: BONES: No acute fracture is present. No bony destructive lesion is seen. JOINTS: The knee is normally aligned. Small joint effusion. No loose body. SOFT TISSUE: Normal. IMPRESSION: Small joint effusion. DATA REPOSITORY: RADIATION DOSE DELIVERED:
== END 2023-05-14 15:40 | disposition home or self-care (01) ==
LOC: DIORS 15:39
PROVIDERS: PCP Nurse Practitioner Family; Visit Provider Student in an Organized Health Care Education/Training Program
DX: M25.562 Pain in left knee (principal)
CPT/HCPCS: 73562

== ENCOUNTER → 2023-05-20 04:10 | Outpatient (CLI) | payer MEDICAID, SELFPAY ==
--- NOTE | 2023-05-20 06:15 | DI.MRI_ITS ---
Exam(s) MR LOWER JOINT LT WO EXAM: MR LOWER JOINT LT WO CLINICAL HISTORY: KNEE INJURY,mcl sprain,lt acl tear,s83.412a,s83.512a. TECHNIQUE: Multiplanar multisequence MRI was performed. COMPARISON: MR MR LOWER JOINT RT WO from 04/24/2022 CR XR KNEE LT 3V AP,LAT,GUILLERMO from 05/14/2023 FINDINGS: BONES: Contusion anterior aspect of the lateral femoral condyle. Contusions of the posterior aspects of the proximal tibia. JOINTS: A moderate-sized joint effusion is present. Articular cartilage: Patellofemoral joint: Articular cartilage is unremarkable. Medial femoral tibial joint: Articular cartilage is unremarkable. Lateral femoral tibial joint: Articular cartilage is unremarkable. TENDONS: Extensor mechanism: Unremarkable. Medial retinaculum: Unremarkable. Lateral retinaculum: Unremarkable. Popliteus: Unremarkable tendon is intact. Edema in noted within the muscle body which could represen t a muscle tear. MUSCLES: Unremarkable. MENISCI: The medial meniscus show some high signal at the periphery posteromedially. The lateral meniscus is unremarkable. SOFT TISSUES: Unremarkable. LIGAMENTS: Anterior Cruciate: Ill-defined, consistent with full-thickness tear. Posterior Cruciate: Unremarkable. Medial Collateral:Surrounded by fluid. No focal tear visible. Lateral Collateral: Unremarkable. IMPRESSION: Full-thickness ACL tear. Medial collateral ligament sprain. Peripheral tear at the posterior horn of the medial meniscus. Contusions of the lateral femoral condyle and both posterior tibial plateaus. Tear within the popliteus muscle. DATA REPOSITORY:
== END ==
PROVIDERS: PCP Nurse Practitioner Family; Visit Provider Student in an Organized Health Care Education/Training Program
DX: M25.562 Pain in left knee (principal); M25.462 Effusion, left knee; S83.412A Sprain of medial collateral ligament of left knee, initial encounter; S83.512A Sprain of anterior cruciate ligament of left knee, initial encounter; S86.892A Other injury of other muscle(s) and tendon(s) at lower leg level, left leg, initial encounter
CPT/HCPCS: 73721

== ENCOUNTER 2023-06-20 08:54 | Day surgery (SDC) | payer MEDICAID, SELFPAY ==
[2023-06-20] VITALS (11 sets, daily range): BP systolic 115–143; BP diastolic 53–95; PULSE 54–83; RESP 14–27; TEMP 36.5–36.7; O2SAT 99–100; BMI 23.3
--- NOTE | 2023-06-20 07:21 | W.PM.DSUDISC ---
Date of service: 06/20/23 Time of Service: 17:00 Discharge Plan Disposition Patient Disposition: Home Condition: Stable Discharge Details Attending Provider: Evan Philippe Primary Care Provider: Marilee Barnett Home Meds and New Rx's Prescriptions: New naproxen 250 mg tablet 250 - 500 mg PO BID PRNQty: 40 0RF Rx Instructions: take with a meal aspirin 81 mg tablet,delayed release (DR/EC) 81 mg PO DAILY 14 Days Qty: 14 0RF oxycodone 5 mg tablet 5 - 10 mg PO Q4H MDD 30 mg PRN (Reason: moderate to severe pain) Qty: 9 0RF Continued albuterol sulfate 90 mcg/actuation HFA aerosol inhaler 2 puff IH Q6H PRN (Reason: shortness of breath or wheezing) Qty: 8.5 4RF dextroamphetamine-amphetamine [Adderall XR] 10 mg capsule,extended release 24hr 10 - 20 mg PO DAILY MDD 2 tabs Qty: 56 0RF Discharge Instructions Additional Instructions: Surgery: Left knee arthroscopy with quadriceps autograft ACL reconstruction, medial meniscus repair, and extensive synovectomy (patellofemoral, anterior, intercondylar, and medial gutter plica) Activity: Weightbearing in extension-only for 6 weeks. Use crutches and brace as needed to protect and maintain knee straight. Recommend ice and elevation to minimize swelling and discomfort. Encourage quad sets, ankle pumps, and wiggle toes to stimulate muscles and improve circulation. Seated/ non-weight bearing flexion 0-90 degrees maximum for 6 weeks. 120 degrees maximum flexion for 8 weeks. Spin/bike after 8 weeks. No weighted deeper flexion (squats, lunges) for 10 weeks. A physical therapy prescription will be sent electronically to start in about 2-3 weeks. Prescriptions: Aspirin 81 mg take 1 daily to prevent a blood clot for 14 days, starting tomorrow morning Naproxen 250 mg take 1-2 every 12 hours with a meal as needed for moderate pain Oxycodone 5 mg take 1-2 every 4-6 hours as needed for severe pain You may use [id number] Tylenol (acetaminophen) as needed for mild pain. These pain medications may be taken all at once or in different combinations as needed. Also, recommend Colace (docusate) as a stool softener as surgery and pain medicine cause constipation. You may try srks-rgp-[id number] diphenhydramine (Benadryl) 25-50 mg nightly as a sleep aid Dressings: Leave dressing in place for 5 days. May then remove and leave open to air or cover incisions with Band-Aids. May shower after 7 days. Follow-up: 10-[address] Philippe You may take off the leg compression stockings this evening at home. You may also leave them on a few days longer if you have a history of leg swelling or edema. Let us know right away if you develop any redness, drainage, fevers, chest pain, or trouble breathing. Do not drink alcohol or drive for at least 24 hours after anesthesia. Please call the office during business hours with any questions or concerns. Stand Alone Forms: Anesthesia Discharge Inst., Anes.Sugammadex Interaction, Anes.Nerve Block Instructions Discharge Orders Discharge Orders: Discharge Order (Routine); Ordered 06/20/23 Ordered By: Gloria Harkins DS: Diagnosis Discharge Diagnosis (1) Left ACL tear: Status: Acute (2) Acute medial meniscus tear of left knee: Status: Acute (3) Synovial plica of left knee:
[2023-06-20] MEDS: Lactated Ringers 1,000 ML 30 ML IV (09:38)
--- NOTE | 2023-06-20 09:47 | W.ANESPRE ---
General Info Date of Service Date Performed: 06/20/23 Height: 5 ft 2 in Weight: 57.8 kg Body Mass Index (BMI): 23.3 Surgical Procedure: Operation Date: 06/20/23 11:40 Proposed Procedure Side Surgeon p Knee ACL Reconstruction (Quadriceps Autograft) Left Evan Philippe MD Meds Allergies and Home Medications Allergies Allergy/AdvReac Type Severity Reaction Status Date / Time animal dander Allergy Wheezing Verified 06/20/23 09:03 Home Medication Medication Instructions Recorded albuterol sulfate 90 mcg/actuation 2 puff inhalation Q6H PRN 01/01/19 aerosol inhaler shortness of breath or wheezing #8.5 grams dextroamphetamine-amphetamine ER 10 - 20 mg (1 - 2 x 10 mg) PO 03/25/23 10 mg 24hr capsule,extend release DAILY #56 caps (Adderall XR) Current Visit Medications: Current Medications Generic Name Dose Route Start Last Admin Trade Name Freq PRN Reason Stop Dose Admin Ringer's Solution 1,000 mls @ 30 mls/hr 06/20/23 06:00 06/20/23 09:38 IV 06/20/23 23:59 30 mls/hr INFUSION CHAGO Administration Cefazolin Sodium/Dextrose 2 gm in 50 mls @ 100 mls/hr 06/20/23 06:00 Ancef Duplex IVPB 06/20/23 23:59 PREOP CHAGO Tranexamic Acid/Sodium Chloride 1,000 mg in 100 mls @ 600 mls/hr 06/20/23 06:00 IVPB 06/20/23 23:59 PREOP CHAGO IV Miscellaneous Supplies 1 each 06/20/23 06:00 Iv Access IV 06/20/23 23:59 DIRECTED CHAGO Oxycodone HCl 0 mg 06/20/23 07:20 Oxycodone 5 Mg Tab PO 07/20/23 07:19 Q3H PRN PRN Pain Sodium Chloride 0 ml 06/20/23 06:00 Normal Saline Flush 10 Ml Syr IV 06/20/23 23:59 PRN PRN Sodium Chloride 0 ml 06/20/23 06:00 Normal Saline 10 Ml Vial IJ 06/20/23 23:59 DIRECTED PRN Sterile Water 0 ml 06/20/23 06:00 Water,Injection,Sterile 10 Ml Vial IJ 06/20/23 23:59 DIRECTED PRN PFSH Active Problems Active Problems: Problem Status Onset Code Acute medial meniscus tear of left knee 05/08/23 S83.242A MCL sprain of left knee 05/08/23 S83.412A Left ACL tear 05/08/23 S83.512A Crepitus of joint of right knee M23.8X1 Attention deficit hyperactivity disorder (ADHD) F90.9 Allergic rhinitis J30.9 Medical History Medical History Asthma Surgical History Surgical History History of repair of anterior cruciate ligament of right knee (01/25/22) right ACL reconstruction with autograft and lateral meniscus repair Tobacco Smoking/Tobacco Use Status: Former Tobacco Use Passive smoking exposure: Yes Second hand exposure: No Alcohol Alcohol Intake: former Substance Use Substance use: Occasionally Substance use type: marijuana Prental History History 0 Para Hx # Term Pregnancies Multiple births Hx # Pregnancies Ectopic pregnancies AB induced Hx Number of Living Children AB spontaneous Vital Signs and Lab Results Vital Signs Most Recent Vital Signs in EMR: Most Recent Vital Signs Temp Pulse Resp BP Pulse Ox 36.7 C 60 16 120/53 L 100 06/20/23 09:04 06/20/23 09:04 06/20/23 09:04 06/20/23 09:04 06/20/23 09:04 Lab Results Blood Type / Crossmatch: No Data to Display Complete Blood Count: No Data to Display Complete Metabolic Panel: No Data to Display Liver Function Panel: No Data to Display Coagulation Panel: No Data to Display Cardiac Panel: No Data to Display Arterial Blood Gas: No Data to Display Venous Blood Gas: No Data to Display Pancreas Panel: No Data to Display Thyroid Panel: No Data to Display Infectious Disease: No Data to Display Blood Cultures: No Data to Display Toxicology Panel: No Data to Display Panel: No Data to Display Anesthesia Assessment and Plan Anesthesia History Personal History: No History of Anesthesia Complications Family History: No Family History of Anesthesia Complications Exercise Tolerance Exercise Tolerance: Metabolic Equivalents>4 Pertinent Negatives Pertinent Negatives: No Symptoms of GERD and No Major Cardiovascular Symptoms or Complaints Cardiac & Pulmonary Exam Cardiac Exam: Normal S1/S2 Heart Sounds Pulmonary Exam: Clear Bilateral Breath Sounds Implantable Cardiac Device Does patient have a Pacemaker or an ICD?: No Airway Exam Known Difficult Airway: No Mallampati Class: 1 Mouth Opening: Normal (> 3cm) Thyromental Distance: Greater than 3 cm Neck Range of Motion: Full ROM Neck Circumference: Normal Teeth Condition: Normal Dentition ASA Classification ASA Score: ASA 2 Emergency Case?: No NPO Status NPO Status: NPO Clears >2 hours, Solids >8 hours Status Status: Negative HCG Anesthesia Plan Resuscitation Status: Full Code Anesthesia Technique: General Anesthesia Airway Planned: Endotracheal Tube Pain Management: Surgeon and patient request nerve block Monitors Used: Standard Monitors
[2023-06-20] MEDS: ceFAZolin 2 GM/50 ML BAG IVPB (12:14)
[2023-06-20] MEDS: TRANEXAMIC ACID/SOD. CHL. 1,000 MG/100 ML BAG 600 MG IVPB (12:28)
--- NOTE | 2023-06-20 12:51 | W.ANESNERVE ---
Nerve Block Single Injection Procedure Date and Time Date Performed: 06/20/23 Procedure Start: 11:35 Location Where Procedure Performed Procedure Location: Day Surgery Unit Reason Performed: Postoperative Analgesia Requesting Provider: Evan Philippe Timeout Performed Timeout Performed: Yes Monitoring Used ECG, Blood Pressure, SpO2 and See EMR for corresponding vital signs Sterility Sterility: Hand Hygiene, Surgical Cap, Surgical Mask, Sterile Gloves and Chlorhexidine Sedation Given During Procedure Sedation Given (Indicate Dose Given): Versed IV Dose:: 2mg Patient Mental Status Patient Mental Status: Awake Nerve Block 1st Nerve Block: Laterality: Left Block Type: Adductor Canal Ultrasound Image Saved?: Yes Needle / Catheter Used: 100mm SonoPlex II Local Anesthetic Bolus (Indicate Dose Given): Lidocaine used for local infiltration of skin, Injected in 3-5ml increments after negative blood aspiration, Bupivacaine 0.25% Dose:: 10ml and Exparel Dose:: 10ml Additives (Indicate Dose Given): None Ultrasound: Sterile probe cover and gel used Nerve Stimulator: Not Used Paresthesia: None Procedure Tolerated: No Complications and Patient tolerated well Procedure Outcome: Successful Performed By: Fadi Boothe
[2023-06-20] MEDS: Bupivacaine 0.25% Pres-Free W/EPI 30 ML VIAL (13:01)
[2023-06-20] MEDS: EPINEPHrine 10 MG/10 ML ML (16:04)
--- NOTE | 2023-06-20 16:38 | ROE_ITS ---
Date of service: 06/20/23 Time of Service: 13:00 Operative Note Operative Note DATE OF PROCEDURE: 06/20/23 PRE-OP DIAGNOSIS: Left knee: 1. ACL rupture 2. Medial meniscus tear Left knee: 1. ACL rupture 2. Medial meniscus tear 3. Synovitis and medial plica PROCEDURE: Left knee: 1. ACL reconstruction, CPT #62343: Quadriceps autograft 2. Medial meniscus repair, CPT #93767 3. Extensive synovectomy and plica excision, CPT #61345: Patellofemoral, anterior intercondylar, and medial gutter SURGEON: Evan Philippe [employer]ILD[employer]: Gloria Harkins ANESTHESIA TYPE: Local By Surgeon, General LMA/ETT and Primary Nerve Block Refer to Anesthesia Record ESTIMATED BLOOD LOSS: 5 TOURNIQUET TIME: 0 COMPLICATIONS: None Patient was transported to: PACU Patient's condition: stable Implants: Arthrex ACL TightRope II RT and ABS with 8x12 mm cortical button 4x Arthrex FiberStitch meniscus repair implants Indications: Please see complete medical record for details. Findings: Exam under anesthesia: Full flexion and extension. Grossly positive Reji, positive pivot shift, stable varus and valgus. Stable posterior drawer. Arthroscopic findings: Significant cyst patellofemoral, anterior, intercondylar synovitis. Prominent medial gutter plical band. Intact articular cartilage. Large posterior horn medial meniscus vertical tear at the red-white zone throughout the entire posterior horn into the root and body junctions. Stable root. Stable body. Complete ACL disruption. Intact PCL. Intact lateral meniscus. Procedure Description: In the operating room, general anesthesia was induced. The patient was positioned supine on the operating room table. All bony prominences were well- padded. Preoperative antibiotics were administered. The knee was prepped and draped in the usual sterile fashion. The correct patient, procedure, and side of the procedure were all verified prior to incision. Exam under anesthesia was performed. 30 cc of a 50:50 mixture of bupivacaine and lidocaine containing epinephrine was infiltrated about the planned anteromedial, anterolateral, lateral distal femoral, pretibial, and quadriceps harvest surgery sites. The standard high and tight anterolateral and anteromedial portals were established and a complete diagnostic arthroscopy was performed with relevant findings detailed above. There was significant hemorrhagic engaging synovitis in the patellofemoral compartment. It was debrided with mechanical shaver. In the medial gutter, there was a large synovial thickening band with this plica impinging over the medial femoral condyle and flexion extension. It was transected with the radiofrequency ablator and then the ends debrided to stable capsular margin with mechanical shaver. The medial meniscus was nondisplaced, superior surface had a benign appearance, but on probing readily demonstrated a large majority thickness inferior vertical tear at the red-white zone starting at the root and continuing to the body junct ion. The diminutive knee size and medial compartment made work challenging, but the tear was probed and abraded to optimize tissue healing. The knee scorpion was initially used to place a central circumferential stitch secured with SMC arthroscopic knots directed away from the joint inferiorly. The knee scorpion was used again, but size did not permit proper deployment and the initial suture was removed by the scorpion while manipulating meniscus. Instead, the smaller fiber stitch 1.5 mm needle was then brought in from the contralateral portal and a vertical mattress repair stitch placed centrally. There was good reduction of the fairly nondisplaced meniscus. An additional repair vertical mattress fiber stitch was placed more toward the body and an additional 2 more toward the root for a total of 4 vertical mattress repair sutures with excellent fixation strength and compression of the reduced meniscus. The root and body were confirmed to remain stable. A passport cannula was inserted and anteromedial anterolateral portals. Back in the intercondylar area, a small notchplasty was performed to allow proper visualization of the back wall and the femoral footprint was marked with the radiofrequency ablator. There was notable synovitis anteriorly and engaging in the diminutive notch. Given the challenges with stiffness, anterior knee fullness, and postoperative MRI showing anterior synovitis decision was made to fully open up the space more than usual so the combination of radiofrequency ablator mechanical shaver were used to debride the synovitis from the intercondylar area and then thoroughly resected debride anterior synovitis and abundant Hoffa's fat pad in order prevent similar problems on the side. Next, the quadriceps graft was harvested. The superior pole the patella and quadriceps tendon was localized and a longitudinal incision made down and exposing the margins of the quadriceps tendon. There was excellent visualization of the VMO, lateralis, and sufficient length and width of tendon for harvest. The distal end was started with a knife with about 10 mm with somewhat conical to the patella. A full-thickness graft was done given the somewhat diminutive overall dimensions. The double knife was used to guide tendon harvest proximally. A stitch was placed at the distal end and the quad pro harvester size 10 mm was used carefully to strip about 70 mm of tendon and then the plunger was used to harvest about 67 mm graft. The full-thickness quadriceps harvest site was closed in a watertight fashion using #1 Vicryl cllvuz-lw-jzkgt interrupted stitches. The graft was prepared on the back table trimming the ends and bulletizing with fiber tag tight rope and ABS added to each side. The resulting graft was nicely compressed and a 9 mm graft tube on the tibial side and with more compression on the femoral side. Femoral side was closer to 9.5 mm and the tibial side 9 mm. The prepared graft construct was about 70 mm in length. On the ABS side, the tensioning sutures were marked. The ABS side had a safety stitch and a flipping stitch was already on the femoral side. The graft was manually tensioned and the construct did not demonstrate any elongation. The graft was then compressed in a graft tube and covered with saline sponges. Back in the knee, the femoral guide was then placed through the anterolateral portal carefully targeting the appropriate anatomic ACL origin. The outer 9 mm diameter of the guide was carefully positioned off of the proximal and posterior articular margins. On the lateral thigh, drill guide position and angle adjusted to about 60 degree angle to the longitudinal axis of the femur in the coronal plane and 20 degree angle to the trans-epicondylar axis in the axial plane to create the most optimal femoral socket. Knife and snap were used to open the skin and IT band and placed the drill guide on bone while maintaining appropriate position on the lateral wall. The tunnel length was noted to be used for marking and passing the femoral button. The flip cutter was then drilled to the appropriate location. The drill guide malleted 7 mm into the cortex. The remainder of the targeting guide removed. The FlipCutter was deployed to 9.5 mm and retrograde reaming done to a depth of almost 30 mm. Bony debris was removed with the shaver. The flip cutter was then closed, withdrawn, and a FiberStick used to pass a #2 FiberWire shuttle stitch, which was withdrawn out the anterolateral portal. The tibial guide was then used to target the anatomic ACL insertion through the anteromedial portal. The drill angle adjusted to 57.5 degrees and a pretibial incision made. The drill guide was placed on bone, tunnel length noted, and the flip cutter drilled to the appropriate location. The drill guide malleted 7 mm into the cortex. The remainder of the targeting guide removed. The FlipCutter was deployed to 9mm and retrograde reaming done to a depth of almost 40 mm. Bony debris was removed with the shaver. The flip cutter was then closed, withdrawn, and a FiberStick used to pass a #2 FiberWire shuttle stitch, which was withdrawn out the anteromedial portal. The mechanical shaver was used to remove bone debris as well as chamfer and remove soft tissue from the edges of the sockets. A femoral shuttle sutures were withdrawn out the anterior medial portal. The PassPort was removed and portal size confirmed to accommodate the graft diameter. The graft was brought over to the knee and the femoral sutures shuttled out the lateral thigh and advanced until the button was near the far cortex. Under arthroscopic visualization with the knee slightly hyperflexed, and the button was then passed and flipped on the far cortex. Counter traction was then maintained on the tibial side of the graft while it was carefully advanced into the knee and then about 15 mm into the femoral socket. The tibial sutures were then shuttled through the tibial tunnel and passing stitch removed while carefully noting the tensioning stitches. The graft was then dunked about 20 mm into the tibial socket. The 8 x 12 mm oblong ABS button was then loaded to the ABS loop and tension sutures used to bring the cortical button down to bone. The graft was advanced and then provisionally tensioned on both the femoral and tibial sides nicely burying the fiber tag sutures. The knee was then cycled 22 times, tensioning rechecked, and final tightening done with the knee in full extension with a moderate reverse Reji maintained. The graft position and tension were appropriate. There was no impingement in full extension. Reji exam was nice and stable. Femoral passing sutures were removed. Backup knots were then tied on both sides and suture tails cut. The knee and all portals were copiously irrigated and then knee drained of arthroscopic fluid. 2-0 Monocryl was used to close the quadriceps harvest subcutaneous tissue followed by 3-0 Monocryl buried subcuticular running for the incision here. 3-0 Monocryl was used to close the portals and small incisions in a buried interrupted fashion. Mastisol, Steri-Strips, Xeroform, 4 x 4 gauze, and sterile soft roll was applied. The extremity was wrapped gently with an Farhan bandage. A soft knee immobilizer placed. The patient awoke from anesthesia without complication and was transferred to the recovery room in a stable condition.
--- NOTE | 2023-06-20 17:11 | W.ANESPOSTOP ---
Postoperative Evaluation Date, Time and Location Date Performed: 06/20/23 Time Performed: 17:10 Patient Location: Day Surgery Unit Vital Signs Most Recent Imported Vital Signs: Most Recent Vital Signs Temp Pulse Resp BP Pulse Ox 36.5 C 65 16 143/91 H 100 06/20/23 16:57 06/20/23 16:57 06/20/23 16:57 06/20/23 16:57 06/20/23 16:57 Pain Score Most Recent Pain Score: Most Recent Pain Score Pain Level 4 06/20/23 16:57 Assessment Mental Status: Awake (Alert & Oriented to Patient Baseline) Airway and Respiratory Function: Patent airway with normal (patient baseline) respiratory exam Cardiovascular Function: Hemodynamically Stable Hydration Status: Adequately Hydrated Nausea & Vomiting: No Nausea or Vomiting Pain: Pain is tolerable per patient Peripheral Nerve Block: Patient did not receive a nerve block
== END 2023-06-20 18:02 | disposition home or self-care (01) ==
LOC: SUR 08:54
PROVIDERS: PCP Nurse Practitioner Family; Visit Provider Student in an Organized Health Care Education/Training Program
PROC: (CPT 29888; principal; 2023-06-20 11:30)
DX: S83.242A Other tear of medial meniscus, current injury, left knee, initial encounter (principal); S83.512A Sprain of anterior cruciate ligament of left knee, initial encounter; X58.XXXA Exposure to other specified factors, initial encounter
CPT/HCPCS: 29888; 29882; 76942; 81025; C9290; J0131; J0665; J0690; J1100; J1885; J2001; J2250; J2405; J2704

== ENCOUNTER 2024-02-18 13:14 | Outpatient (REF) | payer MEDICAID, SELFPAY ==
--- NOTE | 2024-02-18 11:30 | PAPFT_PTH ---
PATIENT: Tiki Cortez I LOC: [facility] U#:[id number] AGE/SX: 23/F ROOM: RE02/18/[address]: Bhaskar Rice DNP : 2000 BED: DIS: 02/18/2024 SPEC #: [id number] RECD: 02/19/24 12:56 STATUS: LIONEL REQ #: [id number] PRINCE: 02/18/24 11:[address]: Bhaskar Montejo DEPT: [facility] Cytology RECD BY: Molly Munoz ENTERED: 02/19/24 12:57 SP TYPE: PAPFT OTHR DR: Marilee Barnett, TIERA Tissues: 1 - CX/ENDOCX FOR PAP SMEARS Procedures: PAP THIN PREP/[facility] Screening Comments: [id number] (CHLAMYDIA/GC)
[2024-02-19 20:52] LABS: HIV-1/2 Ag & Ab Screen Negative (Negative)
[2024-02-19 21:11] LABS: Hepatitis C Ab w Rflx HCV PCR Negative (Negative)
[2024-02-19 21:13] LABS: HBs Antibody, Quant 15.1 mIU/mL (See Note); Hep B Surface Ab Positive (See Note); Hepatitis B Core Antibody Negative (Negative); Hepatitis B Surface Antigen Negative (Negative)
[2024-02-20 12:08] LABS: Syphilis Serology (RPR) Negative (Negative)
[2024-02-20 12:41] LABS: Chlamydia Result Negative (Negative); GC Result Negative (Negative)
== END 2024-02-18 13:15 | disposition home or self-care (01) ==
LOC: LBN 13:14
PROVIDERS: PCP Nurse Practitioner Family; Visit Provider Nurse Practitioner Family
DX: Z11.3 Encounter for screening for infections with a predominantly sexual mode of transmission (principal); Z79.899 Other long term (current) drug therapy
CPT/HCPCS: 86704; 86706; 86803; 87340; 87389; 87491; 87591; 88142; 86592

== ENCOUNTER 2024-09-11 12:33 | Outpatient (CLI) | payer MEDICAID, SELFPAY ==
--- NOTE | 2024-09-11 12:45 | DI.RAD_ITS ---
Exam(s) XR CHEST 2V PA LATERAL EXAM: XR CHEST 2V PA LATERAL CLINICAL HISTORY: Unspecified asthma with (acute) exacerbation ICD-10: J45.901. TECHNIQUE: 2D digital imaging was performed. COMPARISON: CR,XR XR CHEST 2V PA LATERAL from 12/16/2020 FINDINGS: 2 views: Heart size is normal. The mediastinum is not widened. Lungs are clear. No infiltrates nor pleural effusions. IMPRESSION: No acute pulmonary findings. DATA REPOSITORY: RADIATION DOSE DELIVERED:
--- NOTE | 2024-09-11 12:56 | DI.VRAD_ITS ---
PROCEDURE INFORMATION: Exam: XR Chest Exam date and time: 09/11/2024 12:44 PM Age: 24 years old Clinical indication: Other: Unspecified asthma with (acute) exacerbation TECHNIQUE: Imaging protocol: Radiologic exam of the chest. Views: 2 views. COMPARISON: CR XR CHEST 2V PA LATERAL 07/21/2020 10:20 FINDINGS: Lungs: Unremarkable. No consolidation. Pleural spaces: Unremarkable. No pleural effusion. No pneumothorax. Heart/Mediastinum: Unremarkable. No cardiomegaly. Bones/joints: Unremarkable for patient's age. IMPRESSION: No acute cardiopulmonary findings. Dictated and Authenticated by: Chica Garcia MD. Orderin Grady Hoff MD
== END 2024-09-11 12:53 ==
LOC: DI 10-07 12:33
PROVIDERS: PCP Nurse Practitioner Family; Visit Provider Physician Assistant Medical
DX: J45.901 Unspecified asthma with (acute) exacerbation (principal)
CPT/HCPCS: 71046